=== PATIENT | female | born 1965 | race Caucasian/White ===

== ENCOUNTER 2019-08-12 10:20 | Emergency (ER) | payer OTHER, SELFPAY ==
--- NOTE | ~2019-08-12 | XR_ITS ---
EXAMINATION: XR chest 2V DATE: 08/12/2019 11:10 INDICATION: Shortness of breath. 2 weeks of congestion. TECHNIQUE: PA and lateral views of the chest were obtained. COMPARISON: Chest radiograph dated 01/03/2017 FINDINGS: The lungs are clear with no focal airspace opacities, pulmonary edema, pleural effusion or pneumothor ax. The cardiomediastinal silhouette is normal. Mild thoracolumbar levocurvature with moderate spondy losis. IMPRESSION: 1. No acute cardiopulmonary disease. Reviewed, dictated and finalized at location A. HOE OPERATOR
--- NOTE | ~2019-08-12 | CT_ITS ---
EXAMINATION: CTA chest PE protocol EXAM DATE: 08/12/2019 12:44 INDICATION: Shortness of breath with history of pulmonary embolism. TECHNIQUE: Spiral CTA of the chest (pulmonary arteries) was performed with 100 cc Omnipaque 350 intr avenous contrast injection. Images were acquired during the pulmonary arterial phase. Coronal maxi mum intensity projection 3D-reconstructions were created by the technologist on dedicated workstation . Axial, coronal and sagittal reformatted images were reviewed. The dose-length product (DLP) for t his examination was 635.24 mGy-cm. The exposure was tailored according to patient size (auto mA exp osure control), and iterative reconstruction (ASIR) was used as additional dose reduction technique. There is no prior study for comparison. FINDINGS: Pulmonary arteries are well opacified and without intraluminal filling defects. No thora cic aortic dissection. There is mild emphysema and hyperinflation. Lungs are clear. There are no pl eural or pericardial effusions. Tracheobronchial tree is patent. There is no mediastinal, hilar o r axillary lymphadenopathy. There is no pneumothorax. Heart normal in size. No evidence of tatianna nary arterial calcification. Upper abdomen is unremarkable. There is thoracic spondylosis without osteoblastic or osteolytic lesions identified. IMPRESSION: 1. No pulmonary emboli or acute findings. 2. Mild emphysema and hyperinflation. Reviewed, dictated and finalized at location A. MACY GRADUATE INTERN
[2019-08-12 10:22] VITALS: BP 103/63; PULSE 74; RESP 16; TEMP 36.4; O2SAT 99
--- NOTE | 2019-08-12 10:22 | ECG_ITS ---
Measurements Intervals [place] Rate: 70 P: 36 [place]: 137 QRS: 20 QRSD: 102 T: 43 QT: 365 QTc: 394 Interpretive Statements SINUS RHYTHM INCOMPLETE RIGHT BUNDLE BRANCH BLOCK BORDERLINE ECG Electronically Signed On 08-12-2019 10:56:24 PIPE BENDER by Deven Russell D.O.
[2019-08-12 10:40] LABS: Basophils Absolute Auto 0.1 K/mm3 (0.0-0.1); Basophils Percent Auto 0.4 % (0.2-1.2); Eosinophils Absolute Auto 0.1 K/mm3 (0-0.3); Eosinophils Percent Auto 0.6 % (0-4.4); Hematocrit 42.9 % (37.0-47.0); Immature Granulocyte Absolute 0.07 K/mm3 (0.00-0.031); Immature Granulocyte Percent A 0.4 % (0-0.5); Lymphocytes Absolute Auto 7.25 K/mm3 (0.9-3.2); Lymphocytes Percent Auto 44.7 % (18.3-44.2); Mean Corpuscular HGB Conc 32.6 g/dl (32-36); Mean Corpuscular Hemoglobin 29.4 pg (26-34); Mean Corpuscular Volume 89.9 fl (80-100); Mean Platelet Volume 9.8 fl (7.4-10.4); Monocytes Absolute Auto 0.8 K/mm3 (0.1-0.6); Monocytes Percent Auto 5.1 % (2.6-8.5); Neutrophils Absolute Auto 7.9 K/mm3 (1.3-6.7); Neutrophils Percent Auto 48.8 % (45.5-73.1); Platelet Count Result 438 k/mm3 (150-375); Red Blood Count 4.77 M/mm3 (4.2-5.4); Red Cell Distribution Width 13.2 % (11.5-14.5); White Blood Count 16.2 K/mm3 (4.5-10.0)
[2019-08-12 10:51] LABS: Blood Urea Nitrogen 20 mg/dL (7-17); Calcium 10.6 mg/dL (8.4-10.2); Carbon Dioxide 32 mmol/L (22-30); Chloride 102 mmol/L (98-107); Estimated CRCL calculation 77 ml/min; Estimated Glomerular Filt Rate > 60; Glucose 73 mg/dL (65-105); Sodium 142 mmol/L (137-145)
[2019-08-12 11:37] VITALS: BP 136/79; PULSE 61; RESP 17; O2SAT 97
--- NOTE | 2019-08-12 11:50 | ED.SOB ---
HPI - SOB/Dyspnea General Chief Complaint: Shortness of Breath/Dyspnea Stated Complaint: sob/worried about P.E. Time Seen by Provider: 08/12/19 11:39 Source: patient and RN notes reviewed Mode of arrival: ambulatory Limitations: no limitations History of Present Illness HPI Narrative: Pt is a 53 y/o female who presents to the ED with c/o SOB which began 2 weeks ago. She was prompted to come to the ED by Dr. Estes. Pt reports she began to experience right rib cage pain yesterday when she began coughing. She also reports a PMHx of a PE, so she wanted to be evaluated due to similar symptoms when she has had a PE. She states she takes a baby ASA every night, but denies any other anticoagulation therapy. She denies a fever, dizziness, chest pain, or pain anywhere else in her body. MD elicited complaint: shortness of breath Pertinent past history: PE Onset (ago): week(s) (2 weeks ago) Context: other (past PE) Timing: constant Severity: mild Relieving factors: nothing Known history of: PE Associated symptoms: cough and other (right rib cage pain secondary to cough) Related Data Home Medications Medication Instructions Recorded Confirmed alprazolam 0.25 mg tablet 0.25 mg PO TID 05/30/19 aspirin 81 mg tablet,delayed 81 mg PO DAILY 05/30/19 release magnesium oxide 500 mg tablet 500 mg PO DAILY 05/30/19 benzonatate 100 mg PO TID PRN 08/12/19 cholecalciferol (vitamin D3) 1,500 unit PO DAILY 08/12/19 [Vitamin D3] doxycycline hyclate 100 mg PO Q12-24H 08/12/19 methylprednisolone 4 mg PO DAILY 08/12/19 Allergies Allergy/AdvReac Type Severity Reaction Status Date / Time amoxicillin Allergy Unknown Rash Verified 08/12/19 11:33 bupropion Allergy Unknown Hives Verified 08/12/19 11:33 clavulanic acid Allergy Rash Verified 08/12/19 11:32 [From Augmentin] Review of Systems Review of Systems: All systems reviewed & are unremarkable except as noted in HPI and below Constitutional: Constitutional: Denies fever(s) and Denies other (pain anywhere else in her body) Cardiovascular: Cardiovascular: Denies chest pain and Reports other (right rib cage pain secondary to cough) Respiratory: Respiratory: Reports cough and Reports dyspnea Neurologic: Denies dizziness PMFSH Past Medical History Medical History (Updated 08/12/19 @ 13:53 by Raymond Motta MD) Pulmonary embolism Surgical History Surgical History No pertinent past surgical history Family History Family History Grandparent Diabetes mellitus, Onset Age: 83 Father Family history of hypercholesterolemia, Onset Age: 81 Family history of cardiovascular disease Family history of arthritis, Onset Age: 81 Family history of renal failure Mother Family history of pernicious anemia Other Family history of chronic obstructive pulmonary disease Family history of congestive heart failure Social History Social History Smoking status: Heavy tobacco smoker Alcohol intake: current Gender identity (if verbalized by the patient): Female Exam Narrative: Exam Narrative: GENERAL: Well-appearing, Obese, and in no acute distress. HEAD: Normocephalic, atraumatic. EYES: PERRLA and EOMI. ENT: Nares clear. Mucous membranes moist. NECK: Supple. CHEST: Clear to auscultation. No respiratory distress. Mild wheeze bilaterally HEART: Regular rate and rhythm. No murmur heard. Normal peripheral pulses. ABDOMEN: Soft, non tender, non distended, normal active bowel sounds. EXTREMITIES: Normal range of motion. No edema. Has a ganglionic cyst on the right wrist SKIN: Warm, dry, no rash. NEURO: No focal deficits. Alert and oriented x3. PSYCH: Normal mood and affect. Course Course Emergency Course: Inform patient about her lab work, EKG, CT findings. At this time there is no evidence of PE. Advised he
[2019-08-12 14:30] VITALS: BP 153/90; PULSE 60; RESP 18; O2SAT 97
== END 2019-08-12 14:30 | disposition home or self-care (01) ==
PROVIDERS: Emergency Provider Family Medicine; PCP Family Medicine
DX: J44.9 Chronic obstructive pulmonary disease, unspecified (principal); R07.89 Other chest pain; Z86.711 Personal history of pulmonary embolism; Z79.82 Long term (current) use of aspirin; F17.200 Nicotine dependence, unspecified, uncomplicated; I45.10 Unspecified right bundle-branch block
CPT/HCPCS: 36415; 71046; 71275; 80048; 85025; 87804; 93005; 99284; Q9967

== ENCOUNTER 2019-08-29 09:18 | Outpatient (CLI) | payer OTHER, SELFPAY ==
--- NOTE | ~2019-08-29 | US_ITS ---
EXAMINATION: US abdomen complete EXAM DATE: 08/29/2019 10:49 INDICATION: Left quadrant pain, tenderness to palpation. TECHNIQUE: Multiple grayscale and Doppler images of the complete abdomen were obtained (by a technolo gist who performed the scan) and subsequently reviewed. There is no prior study for comparison. FINDINGS: The abdominal aorta is normal in caliber. Visualized portion IVC is patent. The pancreatic head a nd body are normal in appearance. The pancreatic tail is not visualized. The liver has normal echogenicity and contour. There are no focal liver lesions identified. There is no evidence of intrahepatic biliary duct dilation. Portal venous flow was seen in the hepatopedal , normal direction and has normal Doppler waveform. Common bile duct measures 4 mm, which is normal. The gallbladder wall is normal in thickness, with ex pected amount of distention. No sonographic evidence of pericholecystic fluid. There is no cholelit hiases. Technologist performing exam reports patient did not demonstrate sonographic Woodward's sign. Please note that this sign is less reliable in patients who have received pain medication. Right kidney: There is normal contour and echogenicity. It measures 12.2 x 5.6 x 5.2 centimeters. There are no focal renal lesions identified. There is no hydronephrosis. Left kidney: There is normal contour and echogenicity. It measures 11.4 x 5.8 x 5.1 centimeters. T here are no focal renal lesions identified. There is no hydronephrosis. The spleen measures 10 centimeters and is morphologically normal. IMPRESSION: 1. Unremarkable complete abdominal ultrasound exam. Reviewed, dictated and finalized at location A. OGRAPH MECHANIC
== END 2019-08-29 09:19 | disposition home or self-care (01) ==
PROVIDERS: PCP Family Medicine; Visit Provider Family Medicine
DX: R10.12 Left upper quadrant pain (principal)
CPT/HCPCS: 76700

== ENCOUNTER 2020-09-03 10:36 | Emergency (ER) | payer OTHER, SELFPAY ==
[2020-09-03 11:02] VITALS: BP 129/82; PULSE 80; RESP 18; TEMP 36.6; O2SAT 100
[2020-09-03 11:22] LABS: Add Urine Microscopic? YES; Appearance Urine Cloudy (Clear); Bacteria Urine 2+ /hpf; Bilirubin Urine Negative (Negative); Blood Urine 2+ (Negative); Color Urine Yellow (Yellow); Glucose Urine UA Negative (Negative); Ketones Urine Negative (Negative); Leukocyte Esterase Ur Negative LEU/UL (Negative); Mucus Urine Heavy /lpf; Nitrate Urine Negative (Negative); Protein Urine Negative (Negative); Specific Grav Ur 1.019 (1.001-1.035); Squamous Epithelial Cell Urine Moderate /hpf (Few); Urobilinogen Urine Negative mg/dL (<2.0); WBC Urine 0-3 /hpf
[2020-09-03 12:32] VITALS: BP 120/76; PULSE 78; RESP 16; TEMP 36.8; O2SAT 98
[2020-09-03 13:09] LABS: Basophils Percent Auto 0.2 % (0.2-1.2); Eosinophils Absolute Auto 0.2 K/mm3 (0-0.3); Eosinophils Percent Auto 1.9 % (0-4.4); Hematocrit 45.7 % (37.0-47.0); Hemoglobin 14.9 g/dL (12.0-15.0); Immature Granulocyte Absolute 0.02 K/mm3 (0.00-0.031); Immature Granulocyte Percent A 0.2 % (0-0.5); Lymphocytes Percent Auto 35.2 % (18.3-44.2); Mean Corpuscular HGB Conc 32.6 g/dl (32-36); Mean Corpuscular Hemoglobin 29.3 pg (26-34); Mean Corpuscular Volume 89.8 fl (80-100); Mean Platelet Volume 10.7 fl (7.4-10.4); Monocytes Absolute Auto 0.4 K/mm3 (0.1-0.6); Neutrophils Absolute Auto 5.3 K/mm3 (1.3-6.7); Neutrophils Percent Auto 58.5 % (45.5-73.1); Platelet Count Result 346 k/mm3 (150-375); Red Blood Count 5.09 M/mm3 (4.2-5.4); Red Cell Distribution Width 13.1 % (11.5-14.5); White Blood Count 9.1 K/mm3 (4.5-10.0)
[2020-09-03] MEDS: SODIUM CHLORIDE 0.9% IV 1,000 ML 999 ML IV CONT (13:22)
[2020-09-03] MEDS: FAMOTIDINE 20 MG/2 ML VIAL IV PUSH (13:22)
[2020-09-03 13:28] LABS: Alanine Aminotransferase 14 U/L (4-35); Albumin Level 4.3 g/dL (3.5-5.1); Alkaline Phosphatase 132 U/L (38-126); Anion Gap 9 mmol/L (8-16); Aspartate Amino Transferase 19 U/L (14-36); Bilirubin,Total 0.5 mg/dL (0.2-1.3); Blood Urea Nitrogen 17 mg/dL (7-17); Calcium 9.9 mg/dL (8.4-10.2); Carbon Dioxide 25 mmol/L (22-30); Chloride 107 mmol/L (98-107); Estimated CRCL calculation 94 ml/min; Estimated Glomerular Filt Rate > 60; Glucose 90 mg/dL (65-105); Lipase 18 U/L (23-300); Potassium 4.1 mmol/L (3.4-5.0); Sodium 141 mmol/L (137-145)
--- NOTE | 2020-09-03 13:30 | ED.GENADULT ---
HPI - General Adult General Chief complaint: Abdominal Pain <Perez Perez PA-C - Last Filed: 09/03/20 13:36> Stated complaint: Gallbladder Issues <SOFI Vernon Last Filed: 09/03/20 13:36> Time Seen by Provider: 09/03/20 12:26 <SOFI Vernon Last Filed: 09/03/20 13:36> Source: patient and family <SOFI Vernon Last Filed: 09/03/20 13:36> Mode of arrival: ambulatory <Perez Perez PA-C - Last Filed: 09/03/20 13:36> Limitations: no limitations <Perez Perez PA-C - Last Filed: 09/03/20 13:36> History of Present Illness HPI narrative: Patient is a 54-year-old female who presents to emergency department for evaluation of having had diarrhea over the last day patient notes she had eaten a roast and then experienced diarrhea with multiple episodes throughout the day and some dry retching but denies emesis patient's has had diarrhea for the last 4 days patient on arrival denies any pain notes that her diarrhea is resolving and is otherwise resting comfortably in the room in no distress <Perez Perez PA-C - Last Filed: 09/03/20 13:36> Related Data Home medications: Home Medications Medication Instructions Recorded Confirmed aspirin 81 mg tablet,delayed 81 mg PO DAILY 05/30/19 04/30/20 release magnesium oxide 500 mg tablet 500 mg PO DAILY 05/30/19 04/30/20 cholecalciferol (vitamin D3) 50 1,500 unit PO DAILY 08/22/19 04/30/20 mcg (2,000 unit) capsule ascorbate calcium (vitamin C) 500 500 mg PO DAILY 02/18/20 04/30/20 mg tablet krill oil 500 mg capsule mg PO 02/18/20 04/30/20 mecobalamin (vitamin B12) 5,000 mcg PO 02/18/20 04/30/20 mcg disintegrating tablet <SOFI Vernon Last Filed: 09/03/20 13:36> Allergies/adverse reactions: Allergies Allergy/AdvReac Type Severity Reaction Status Date / Time Iodine and Iodide Containing Allergy Intermediate Rash Verified 09/03/20 12:52 Produc amoxicillin Allergy Unknown Rash Verified 09/03/20 12:52 bupropion Allergy Unknown Hives Verified 09/03/20 12:52 clavulanic acid Allergy Rash Verified 09/03/20 12:52 [From Augmentin] <Perez Perez PA-C - Last Filed: 09/03/20 13:36> Review of Systems Review of Systems: All systems reviewed & are unremarkable except as noted in HPI and below <Perez Perez PA-C - Last Filed: 09/03/20 13:36> [facility] Past Medical History Medical History: Medical History Abdominal pain Chronic anxiety Chronic pain of both feet COPD (chronic obstructive pulmonary disease) Encounter for screening for other viral diseases Leukocytosis Migraine without aura and without status migrainosus, not intractable Overactive bladder Pulmonary embolism <Perez Perez PA-C - Last Filed: 09/03/20 13:36> Surgical History Surgical History: Surgical History No pertinent past surgical history <Perez Perez PA-C - Last Filed: 09/03/20 13:36> Family History Family History: Family History Grandparent Diabetes mellitus, Onset Age: 83 Father Family history of hypercholesterolemia, Onset Age: 81 Family history of cardiovascular disease Family history of arthritis, Onset Age: 81 Family history of renal failure Mother Family history of pernicious anemia Other Family history of chronic obstructive pulmonary disease Family history of congestive heart failure <Perez Perez PA-C - Last Filed: 09/03/20 13:36> Social History Social History: Social History Smoking packs per day: 1 Smoking cigarettes per day: 20.0 Years smoked: 44 Smoking pack-years: 44.00 Smoking status: Current every day smoker Tobacco type: cigarettes Alcohol intake: current Subs
[2020-09-03 14:12] VITALS: BP 147/81; PULSE 83; RESP 18; O2SAT 95
== END 2020-09-03 14:30 | disposition home or self-care (01) ==
PROVIDERS: Emergency Provider General Practice; PCP Family Medicine
DX: R10.9 Unspecified abdominal pain (principal); N32.81 Overactive bladder; J44.9 Chronic obstructive pulmonary disease, unspecified; F41.9 Anxiety disorder, unspecified; F17.210 Nicotine dependence, cigarettes, uncomplicated; Z86.711 Personal history of pulmonary embolism
CPT/HCPCS: 36415; 80053; 81001; 83690; 85025; 96361; 96374; 99284; J7030

== ENCOUNTER 2020-12-18 10:44 | Outpatient (CLI) | payer OTHER, SELFPAY ==
[2020-12-18 11:52] LABS: Thyroid Stimulating Hormone 0.538 uIU/mL (0.465-4.680)
[2020-12-18 13:46] LABS: Free T4 Free Thyroxine 1.23 ng/mL (0.78-2.19)
[2020-12-22 15:26] LABS: Triiodothyronine T3 Free 3.3 pg/mL (2.3-4.2)
== END 2020-12-18 10:45 | disposition home or self-care (01) ==
LOC: ANHLAB 10:45
PROVIDERS: PCP Family Medicine; Visit Provider Internal Medicine Endocrinology, Diabetes & Metabolism
DX: E05.90 Thyrotoxicosis, unspecified without thyrotoxic crisis or storm (principal); E04.9 Nontoxic goiter, unspecified
CPT/HCPCS: 36415; 84439; 84443; 84481

== ENCOUNTER 2021-01-11 08:44 | Outpatient (CLI) | payer OTHER, SELFPAY ==
--- NOTE | 2021-01-27 15:24 | WPDHOMESLEEP ---
Sleep Study - Home Unattended Date of Study: 01/11/21 Ordering Provider: Donal Estes MD Interpreting Provider: Yamini Yi MD Home Sleep Study Type: Apnea Link Air Height: 1.7 m Weight: 97.522 kg Body Mass Index: 33.6 Neck Circumference (inches): 16 [place]: 3 Reason for Sleep Study Constant loud snoring Sleep History Regina Perez is a 55 year old woman with constant loud snoring. She does not snore loudly enough so others complain. She does not awaken from sleep feeling short of breath. She rarely awakens at night with heartburn, belching or coughing. She rarely has trouble sleeping with a cold. She does not wake up gasping for breath at night or have breathing problems at night reported to her by others. She rarely sweats get excessively at night. She does not notice her heart she does not fall asleep during the day. She denies falling asleep involuntarily or while driving. She does not have loss of muscle tone was strong emotion. She frequently has daytime difficulties due to excessive sleepiness. She works as a model home sales greeter. she does not feel paralyzed on waking or falling asleep and does not have vivid dreamlike scenes upon awakening or falling asleep. She is not afraid to go sleep. She rarely has nightmares and rarely remembers her dreams. She frequently has racing thoughts. She rarely feels sad or depressed. She occasionally has anxiety, muscular tension and occasionally notices parts of her body jerking. She does not kick at night. She does not have crawling and aching feelings in her legs. She frequently has leg pain at night. She does not have morning jaw pain and does not grind her teeth during sleep. She constantly is bothered by pain during the day, frequently awakened by pain at night. She frequently wakes up feeling stiff in the morning with sore or achy muscles and pain in the neck and spine. She has fatigue, headaches, memory problems and concentration difficulties. She has not gained weight in the last year. Normal bedtime is 11:00 p.m. falling asleep within a 1/2 hour after taking melatonin, or 1 hour if she does not take melatonin. She wakes up 4 or 5 times during the night, mainly to turn over and reposition. She returns to sleep within 30 seconds or sometimes as long as 10 minutes. She wakes the morning at 7:30 a.m.. She is drowsy for 2 hours after waking. She stays in the bed for 9 minutes after pushing the snooze button once. She does not generally take naps. A short nap is not refreshing. She feels better in the evening compared other times of day. She always has daytime sleepiness. Habits: tobacco 1 pack per day. Caffeine 2 coffees, 0.5 gal of weak tea. no alcohol. She does use recreational drugs. [facility] Past Medical History Medical History (Updated 01/27/21 @ 15:41 by Yamini Yi MD) Abdominal pain BMI 33.0-33.9,adult Chronic anxiety Chronic pain of both feet COPD (chronic obstructive pulmonary disease) Encounter for screening for other viral diseases Hypersomnia Leukocytosis Migraine without aura and without status migrainosus, not intractable Overactive bladder Pulmonary embolism Surgical History Surgical History No pertinent past surgical history Family History Family History Grandparent Diabetes mellitus, Onset Age: 83 Father Family history of hypercholesterolemia, Onset Age: 81 Family history of cardiovascular disease Family history of arthritis, Onset Age: 81 Family history of renal failure Mother Family history of pernicious anemia Other Family history of chronic obstructive pulmonary disease Family history of congestive heart failure Social History Social History Smoking packs per day: 1 Smoking cigarettes per day: 20.0 Years smoked: 44 Smoking pack-yea
[2021-01-27 15:59] VITALS: BMI 33.6
== END 2021-01-12 13:08 | disposition home or self-care (01) ==
LOC: ANHCSM 08:45
PROVIDERS: PCP Family Medicine; Visit Provider Family Medicine
DX: G47.10 Hypersomnia, unspecified (principal); G47.33 Obstructive sleep apnea (adult) (pediatric)
CPT/HCPCS: 95806

== ENCOUNTER 2021-03-15 00:47 | Day surgery (SDC) | payer OTHER, SELFPAY ==
[2021-03-04 13:27] VITALS: BMI 32.8
[2021-03-15 06:31] VITALS: BP 120/71; PULSE 77; RESP 18; TEMP 36.1; O2SAT 99; BMI 33.0
[2021-03-15] MEDS: LACTATED RINGERS 1,000 ML 150 ML IV CONT (06:43)
--- NOTE | 2021-03-15 07:09 | WPDANESEPPF ---
Anes - Initial Pre Proc Eval Procedure: Operation Date: 03/15/21 07:30 Proposed Procedures p Screening Colonoscopy - Santhosh Jhaveri MD Date/Time: 03/15/21 07:09 Surgeon: Santhosh Jhaveri MD Pre Op Diagnosis: neoplasm screening Patient Data Age: 55 Gender: F Height: 1.7 m Weight: 95.7 kg Last Vital Signs Temp 97 F L 03/15/21 06:31 Pulse 77 03/15/21 06:31 Resp 18 03/15/21 06:31 BP 120/71 03/15/21 06:31 Pulse Ox 99 03/15/21 06:31 Allergies Allergy/AdvReac Type Severity Reaction Status Date / Time amoxicillin Allergy Unknown Rash Verified 03/15/21 06:29 bupropion Allergy Unknown Hives Verified 03/15/21 06:29 clavulanic acid Allergy Rash Verified 03/15/21 06:29 [From Augmentin] Home Medications Medication Instructions Recorded Confirmed Type aspirin 81 mg tablet,delayed 81 mg PO DAILY 05/30/19 03/04/21 History release magnesium oxide 500 mg tablet 500 mg PO DAILY 05/30/19 03/04/21 History cholecalciferol (vitamin D3) 50 1,500 unit PO DAILY 08/22/19 03/04/21 History mcg (2,000 unit) capsule ascorbate calcium (vitamin C) 500 500 mg PO DAILY 02/18/20 03/04/21 History mg tablet krill oil 500 mg capsule 500 mg PO DAILY 02/18/20 03/04/21 History mecobalamin (vitamin B12) 5,000 5,000 mcg PO DAILY 02/18/20 03/04/21 History mcg disintegrating tablet celecoxib 200 mg capsule 200 mg PO DAILY PRN #30 cap 04/13/20 03/04/21 Rx alprazolam 0.25 mg tablet 0.25 mg PO TID PRN #90 tablet 04/30/20 03/04/21 Rx tolterodine 4 mg capsule,extended 4 mg PO DAILY #30 cap 08/06/20 03/04/21 Rx release 24 hr cannabis BYMOUTH 11/02/20 11/02/20 History ginkgo biloba [Ginkoba] 40 mg PO TID 03/04/21 03/04/21 History policosanol 10 mg PO DAILY 03/04/21 03/04/21 History Patient hx anesthesia problems: none Family hx anesthesia problems: none PMFSH Past Medical History Medical History (Updated 01/27/21 @ 16:49 by Donal Estes MD) Abdominal pain BMI 33.0-33.9,adult Chronic anxiety Chronic pain of both feet COPD (chronic obstructive pulmonary disease) Encounter for screening for other viral diseases Hypersomnia Leukocytosis Migraine without aura and without status migrainosus, not intractable Overactive bladder Pulmonary embolism Surgical History Surgical History No pertinent past surgical history Family History Family History Grandparent Diabetes mellitus, Onset Age: 83 Father Family history of hypercholesterolemia, Onset Age: 81 Family history of cardiovascular disease Family history of arthritis, Onset Age: 81 Family history of renal failure Mother Family history of pernicious anemia Other Family history of chronic obstructive pulmonary disease Family history of congestive heart failure Social History Social History Smoking packs per day: 1 Smoking cigarettes per day: 20.0 Years smoked: 45 Smoking pack-years: 45.00 Smoking status: Current every day smoker Tobacco type: cigarettes Alcohol intake: never Alcohol use details: rarely Substance use: never Substance use type: marijuana Living arrangements: with family Gender identity (if verbalized by the patient): Female Spiritual care concerns: No Anes - Eval Final PreProcedure Day of Procedure 03/15/21 07:09 Patient weight: obese Heart: regular rate and rhythm Lungs: clear to auscultation Airway: Mallampati scale class II Neurological: alert and oriented Last oral intake: >/= 8 hours ASA classification: III Emergent: no Anesthetic plan: proceed Anesthesia type and monitoring: general GIVS and standard monitoring Informed Consent: The patient's anesthetic plan and its attendant risks and benefits were discussed with the patient/family/POA. Questions were solicited and answers provided to the satisfaction of
--- NOTE | 2021-03-15 07:32 | WPDGICN ---
Assessment and Plan Assessment and plan (1) Colon cancer screening: Code(s): Z12.11 - Encounter for screening for malignant neoplasm of colon Status: Acute Assessment and Plan: Patient presents for screening colonoscopy. Further recommendations will be given after endoscopy. She appears to be at average risk for colon polyps. GI Consult Note Consult date/time: 03/15/21 07:32 HPI: Regina Perez is a 55 year old female Presents for screening colonoscopy. Patient reports that her current weight appetite bowel movements normal. She denies any blood in her stools. She denies abdominal pain. She has had no bleeding. Family history is noncontributory. Review of Systems Review of Systems: All systems reviewed & are unremarkable except as noted in HPI and below PMFSH Past Medical History Medical History (Updated 01/27/21 @ 16:49 by Donal Estes MD) Abdominal pain BMI 33.0-33.9,adult Chronic anxiety Chronic pain of both feet COPD (chronic obstructive pulmonary disease) Encounter for screening for other viral diseases Hypersomnia Leukocytosis Migraine without aura and without status migrainosus, not intractable Overactive bladder Pulmonary embolism Surgical History Surgical History No pertinent past surgical history Family History Family History Grandparent Diabetes mellitus, Onset Age: 83 Father Family history of hypercholesterolemia, Onset Age: 81 Family history of cardiovascular disease Family history of arthritis, Onset Age: 81 Family history of renal failure Mother Family history of pernicious anemia Other Family history of chronic obstructive pulmonary disease Family history of congestive heart failure Social History Social History Smoking packs per day: 1 Smoking cigarettes per day: 20.0 Years smoked: 45 Smoking pack-years: 45.00 Smoking status: Current every day smoker Tobacco type: cigarettes Alcohol intake: never Alcohol use details: rarely Substance use: never Substance use type: marijuana Living arrangements: with family Gender identity (if verbalized by the patient): Female Spiritual care concerns: No Meds Home Medications and Allergies Home Medications Medication Instructions Recorded Confirmed Type aspirin 81 mg tablet,delayed 81 mg PO DAILY 05/30/19 03/04/21 History release magnesium oxide 500 mg tablet 500 mg PO DAILY 05/30/19 03/04/21 History cholecalciferol (vitamin D3) 50 1,500 unit PO DAILY 08/22/19 03/04/21 History mcg (2,000 unit) capsule ascorbate calcium (vitamin C) 500 500 mg PO DAILY 02/18/20 03/04/21 History mg tablet krill oil 500 mg capsule 500 mg PO DAILY 02/18/20 03/04/21 History mecobalamin (vitamin B12) 5,000 5,000 mcg PO DAILY 02/18/20 03/04/21 History mcg disintegrating tablet celecoxib 200 mg capsule 200 mg PO DAILY PRN #30 cap 04/13/20 03/04/21 Rx alprazolam 0.25 mg tablet 0.25 mg PO TID PRN #90 tablet 04/30/20 03/04/21 Rx tolterodine 4 mg capsule,extended 4 mg PO DAILY #30 cap 08/06/20 03/04/21 Rx release 24 hr cannabis BYMOUTH 11/02/20 11/02/20 History ginkgo biloba [Ginkoba] 40 mg PO TID 03/04/21 03/04/21 History policosanol 10 mg PO DAILY 03/04/21 03/04/21 History Allergies Allergy/AdvReac Type Severity Reaction Status Date / Time amoxicillin Allergy Unknown Rash Verified 03/15/21 06:29 bupropion Allergy Unknown Hives Verified 03/15/21 06:29 clavulanic acid Allergy Rash Verified 03/15/21 06:29 [From Augmentin] Vital Signs Vital Signs - 24 hr 03/15/21 06:31 Temperature 97 F L Pulse Rate 77 Respiratory Rate 18 Blood Pressure 120/71 Pulse Oximetry 99 Exam Narrative: Physical exam reveals patient be alert. Vital signs are stable. HEENT exam is unremarkable. Patient is ani
[2021-03-15 07:51] VITALS: BP 101/58; PULSE 65; RESP 22; O2SAT 99
[2021-03-15 08:01] VITALS: BP 120/79; PULSE 60; RESP 20; O2SAT 99
[2021-03-15 08:11] VITALS: BP 123/79; PULSE 58; RESP 18; O2SAT 99
== END 2021-03-15 08:22 | disposition home or self-care (01) ==
PROVIDERS: PCP Family Medicine; Visit Provider Internal Medicine Gastroenterology
PROC: 0DJD8ZZ Inspection of Lower Intestinal Tract, Via Natural or Artificial Opening Endoscopic (ICD-10-PCS; CPT 45378; principal; 2021-03-15 07:30)
DX: Z12.11 Encounter for screening for malignant neoplasm of colon (principal); K62.1 Rectal polyp; J44.9 Chronic obstructive pulmonary disease, unspecified; F41.9 Anxiety disorder, unspecified; Z86.711 Personal history of pulmonary embolism; F17.210 Nicotine dependence, cigarettes, uncomplicated; F12.90 Cannabis use, unspecified, uncomplicated; E66.9 Obesity, unspecified; Z79.82 Long term (current) use of aspirin; Z68.33 Body mass index [BMI] 33.0-33.9, adult
CPT/HCPCS: 45385; 88305; J2704; J7120

== ENCOUNTER → 2021-04-06 17:15 | Outpatient (CLI) | payer OTHER, SELFPAY ==
--- NOTE | ~2021-04-06 | MM_ITS ---
EXAMINATION: MM screening aura BI w ulises HISTORY: Screening TECHNIQUE: Craniocaudal and mediolateral oblique 3-D tomosynthesis images were obtained and synthetic 2-D images were generated. CAD analysis was submitted and interpreted. COMPARISON: 12/08/2016 BREAST PARENCHYMAL COMPOSITION: The breasts are almost entirely fatty. FINDINGS: There is no evidence of suspicious mass, calcification, or architectural distortion to sugg est malignancy in either breast. There has been no suspicious interval change. IMPRESSION: 1. No mammographic evidence of malignancy. 2. Recommend routine screening mammography in one year. BI-RADS Category 1: Negative Reviewed, dictated and finalized at location A.
== END ==
PROVIDERS: PCP Family Medicine; Visit Provider Obstetrics & Gynecology
DX: Z12.31 Encounter for screening mammogram for malignant neoplasm of breast (principal)
CPT/HCPCS: 77063; 77067

== ENCOUNTER → 2021-08-31 15:29 | Outpatient (CLI) | payer OTHER, SELFPAY ==
--- NOTE | ~2021-08-31 | XR_ITS ---
EXAMINATION: XR hip LT min 3V w AP pelvis EXAM DATE: 08/31/2021 15:45 INDICATION: M70.62 - Trochanteric bursitis, left hip pain;no injury. TECHNIQUE: Left hip frontal, crosstable lateral and 'frog-leg' projections for interpretation. Fronta l projection pelvis. Comparison is made to prior examination from 01/10/2019. FINDINGS: Smooth left hip femoral head contour, no radiographic evidence of avascular necrosis. Ther e is mild to moderate symmetric bilateral hip primary osteoarthritis. Portion of lumbar spine imaged demonstrates moderate dextroscoliosis. There are no acute pelvis, left hip fractures or dislocations identified. There is no subcutaneous gas. The soft tissue is unremarkable. There are no radiopaq ue foreign bodies. IMPRESSION: 1. Mild to moderate symmetric bilateral hip osteoarthritis. 2. Moderate lumbar dextroscoliosis. Reviewed, dictated and finalized at location A. [employer] MA[employer]GER
== END ==
PROVIDERS: PCP Family Medicine; Visit Provider Family Medicine
DX: M70.62 Trochanteric bursitis, left hip (principal); M16.0 Bilateral primary osteoarthritis of hip; M41.86 Other forms of scoliosis, lumbar region
CPT/HCPCS: 73502

== ENCOUNTER 2021-11-10 10:43 | Outpatient (CLI) | payer OTHER, SELFPAY ==
--- NOTE | 2021-11-11 09:58 | WPDPFTINT ---
PFT Procedure Performed PFT Procedure Performed Spirometry with Pre/Post Bronchodilator Plethysmography (Lung Vol) Diffusing Cap (DLCO) Flow Vol Loop PFT Interpretation Lung volumes were measured with the body plethysmography method. Lung volumes are unremarkable. Spirometry showed normal expiratory flow rates and a normal FEV1 to FVC ratio of 77%. Following administration of a bronchodilator there was no significant increase in expiratory flow rates. Lung diffusion capacity is borderline normal at 72% predicted. The flow volume loop is unremarkable. Impression: Spirometry, lung volumes, and lung diffusion capacity all within the normal range.
== END 2021-11-10 10:44 | disposition home or self-care (01) ==
LOC: ANHPFT 10:45
PROVIDERS: PCP Family Medicine; Visit Provider Family Medicine
DX: J44.9 Chronic obstructive pulmonary disease, unspecified (principal)
CPT/HCPCS: 94060; 94726; 94729

== ENCOUNTER 2021-12-21 09:30 | Outpatient (CLI) | payer OTHER, SELFPAY ==
[2021-12-21 13:05] LABS: Free T4 Free Thyroxine 1.04 ng/mL (0.78-2.19)
[2021-12-23 21:07] LABS: Triiodothyronine T3 Free 3.2 pg/mL (2.3-4.2)
== END 2021-12-21 09:31 | disposition home or self-care (01) ==
LOC: ANHWCLAB 09:32
PROVIDERS: PCP Family Medicine; Referring Provider Internal Medicine Endocrinology, Diabetes & Metabolism; Visit Provider Internal Medicine Endocrinology, Diabetes & Metabolism
DX: E04.9 Nontoxic goiter, unspecified (principal); E05.90 Thyrotoxicosis, unspecified without thyrotoxic crisis or storm
CPT/HCPCS: 36415; 84439; 84443; 84481

== ENCOUNTER 2022-02-17 17:21 | Outpatient (CLI) | payer OTHER, SELFPAY ==
--- NOTE | ~2022-02-17 | XR_ITS ---
EXAMINATION: XR chest 2V DATE: 02/17/2022 17:42 INDICATION: Chronic obstructive pulmonary disease. TECHNIQUE: PA and lateral views of the chest were obtained. COMPARISON: Chest radiograph and CT dated 08/12/2019 FINDINGS: The lungs remain clear with no focal airspace opacities, pulmonary edema, pleural effusion or pneumot horax. The cardiomediastinal silhouette is normal. Moderate thoracic spondylosis with mild lower thor acic levoscoliosis. IMPRESSION: 1. No acute cardiopulmonary disease. Reviewed, dictated and finalized at location A.
== END 2022-02-17 17:22 | disposition home or self-care (01) ==
LOC: ANHIMG 17:28
PROVIDERS: PCP Family Medicine; Visit Provider Family Medicine
DX: J44.9 Chronic obstructive pulmonary disease, unspecified (principal)
CPT/HCPCS: 71046

== ENCOUNTER 2022-11-01 08:11 | Outpatient (CLI) | payer OTHER, SELFPAY ==
--- NOTE | ~2022-11-01 | CT_ITS ---
CT Scan of the Chest without Contrast: Clinical Indication: Lung cancer screening, smoking history Technique: Contiguous sections were acquired throughout the chest without intravenous contrast. Dose reduction technique was used on this scan by utilizing automated exposure control and iterative recon struction technique. The dose-length product (DLP) was 135.27 mGy-cm. COMPARISON: 08/12/2019 Findings: There is no evidence of any significant mediastinal, hilar or axillary lymphadenopathy. Mild coronary artery calcium lesions are present. There is no evidence of pleural or pericardial effusion. Stable mild biapical scarring noted. No other pulmonary nodule seen. Images through the upper abdomen reveal no abnormalities. Impression: Lung RADS 2: Benign appearance. 12 month follow-up screening CT advised. Reviewed, dictated and finalized at location . Impression: Lung RADS 2: Benign appearance. 12 month follow-up screening CT advised.
== END 2022-11-01 08:12 | disposition home or self-care (01) ==
PROVIDERS: PCP Family Medicine; Visit Provider Nurse Practitioner Family
DX: Z12.2 Encounter for screening for malignant neoplasm of respiratory organs (principal); F17.209 Nicotine dependence, unspecified, with unspecified nicotine-induced disorders
CPT/HCPCS: 71271

== ENCOUNTER 2023-02-06 17:14 | Outpatient (CLI) | payer OTHER, SELFPAY ==
[2023-02-06 18:01] LABS: Basophils Absolute Auto 0.1 K/mm3 (0.0-0.1); Basophils Percent Auto 0.5 % (0.2-1.2); Eosinophils Absolute Auto 0.2 K/mm3 (0-0.3); Eosinophils Percent Auto 1.8 % (0-4.4); Hematocrit 39.2 % (37.0-47.0); Immature Granulocyte Absolute 0.03 K/mm3 (0.00-0.031); Immature Granulocyte Percent A 0.3 % (0-0.5); Lymphocytes Absolute Auto 4.53 K/mm3 (0.9-3.2); Lymphocytes Percent Auto 41.4 % (18.3-44.2); Mean Corpuscular HGB Conc 33.2 g/dl (32-36); Mean Corpuscular Hemoglobin 30.7 pg (26-34); Mean Corpuscular Volume 92.7 fl (80-100); Mean Platelet Volume 10.6 fl (7.4-10.4); Monocytes Absolute Auto 0.5 K/mm3 (0.1-0.6); Monocytes Percent Auto 4.3 % (2.6-8.5); Neutrophils Absolute Auto 5.7 K/mm3 (1.3-6.7); Neutrophils Percent Auto 51.7 % (45.5-73.1); Platelet Count Result 329 k/mm3 (150-375); Red Blood Count 4.23 M/mm3 (4.2-5.4)
[2023-02-06 18:08] LABS: Appearance Urine Turbid (Clear); Bacteria Urine 1+ /hpf; Bilirubin Urine Negative (Negative); Blood Urine 2+ (Negative); Color Urine Yellow (Yellow); Glucose Urine UA Negative (Negative); Ketones Urine Negative (Negative); Leukocyte Esterase Ur 1+ LEU/UL (NEGATIVE); Nitrate Urine Negative (Negative); Protein Urine Negative (Negative); Specific Grav Ur 1.016 (1.001-1.035); Squamous Epithelial Cell Urine Many /hpf (Few); Urobilinogen Urine 0.2 mg/dL (<2.0)
[2023-02-06 18:13] LABS: Alanine Aminotransferase 18 U/L (6-35); Albumin Level 4.4 g/dL (3.5-5.1); Alkaline Phosphatase 120 U/L (38-126); Anion Gap 7 mmol/L (8-16); Aspartate Amino Transferase 21 U/L (14-36); Bilirubin,Total 0.3 mg/dL (0.2-1.3); Blood Urea Nitrogen 18 mg/dL (7-17); Calcium 10.1 mg/dL (8.4-10.2); Carbon Dioxide 27 mmol/L (22-30); Chloride 105 mmol/L (98-107); Cholesterol 233 mg/dL (0-200); Estimated Glomerular Filt Rate > 60; Glucose 93 mg/dL (65-110); HDL Direct 43 mg/dL; Magnesium 2.4 mg/dL (1.6-2.3); Potassium 3.9 mmol/L (3.4-5.0); Sodium 139 mmol/L (137-145); Triglycerides 158 mg/dL (<150); Uric Acid 4.2 mg/dL (2.5-7.5)
[2023-02-06 18:17] LABS: Add Urine Microscopic? YES
[2023-02-06 18:23] LABS: LDL Cholesterol Direct 140 mg/dL
[2023-02-06 18:58] LABS: Rheumatoid Factor < 12.0 IU/ML (<12)
[2023-02-06 19:00] LABS: Erythrocyte Sedimentation Rate 16 mm/hr (0-20)
[2023-02-08 19:30] LABS: ANA Cascade Screen Negative (Negative)
== END 2023-02-06 17:15 | disposition home or self-care (01) ==
PROVIDERS: PCP Family Medicine; Visit Provider Family Medicine
DX: E78.2 Mixed hyperlipidemia (principal); G47.33 Obstructive sleep apnea (adult) (pediatric); M16.12 Unilateral primary osteoarthritis, left hip; K59.09 Other constipation; H04.123 Dry eye syndrome of bilateral lacrimal glands; R68.2 Dry mouth, unspecified; G57.93 Unspecified mononeuropathy of bilateral lower limbs; N32.81 Overactive bladder
CPT/HCPCS: 36415; 80053; 80061; 81001; 82607; 82746; 83735; 84550; 85025; 85652; 86038; 86430

== ENCOUNTER 2024-01-03 09:04 | Outpatient (CLI) | payer OTHER, SELFPAY ==
--- NOTE | 2024-01-18 12:42 | WPDHOMESLEEP ---
Sleep Study - Home Unattended Date of Study: 01/03/24 Ordering Provider: Misa Baca DO Interpreting Provider: Misa Baca DO Home Sleep Study Type: Watch PAT Height: 1.73 m Weight: 90.718 kg Body Mass Index: 30.4 Neck Circumference (inches): 14.5 [place]send: 0 Reason for Sleep Study Previously diagnosed with mild DAYANARA on 01/11/2021 but never started PAP Therapy Sleep History Sleep questionnaire was unavailable. Please see HPI from most recent Sleep Medicine note. [facility] Past Medical History Medical History Abdominal pain Bilateral chronic knee pain Test for inflammatory arthritis normal on 02/06/2027 with uric acid 4.2, rheumatoid factor less than 12, RERE negative. BMI 31.0-31.9,adult BMI 33.0-33.9,adult Breast cancer screening Chronic anxiety Chronic pain of both feet COPD (chronic obstructive pulmonary disease) Pulmonary function study on 11/10/2021 was completely normal with no obstructive defects. No COPD. COVID-19 (06/25/21) fully vaccinated and COVID 19 with positive home test around 06/27/2021 Dry mouth and eyes RERE negative 02/06/2023. Encounter for screening for other viral diseases Encounter for wellness examination in adult Hypersomnia Leukocytosis WBC 11.0 on 02/06/2023. Migraine without aura and without status migrainosus, not intractable Muscle spasm Magnesium normal at 2.4 on 02/06/2023. Neuropathy of both feet Vitamin B12 normal at 429 with folic acid 11.0 on 02/06/2023. Obesity (BMI 30.0-34.9) Overactive bladder Plantar wart of left foot Pulmonary embolism Screening for lung cancer CT lung screening 11/01/2022 was normal. Surgical History Surgical History No pertinent past surgical history Family History Family History Grandparent Diabetes mellitus, Onset Age: 83 Father Family history of hypercholesterolemia, Onset Age: 81 Family history of cardiovascular disease Family history of arthritis, Onset Age: 81 Family history of renal failure Mother Family history of pernicious anemia Other Family history of chronic obstructive pulmonary disease Family history of congestive heart failure Social History Social History Smoking packs per day: 1 Smoking cigarettes per day: 20.0 Years smoked: 45 Smoking pack-years: 45.00 Smoking status: Current every day smoker Tobacco type: cigarettes Alcohol intake: never Alcohol use details: rarely Substance use: never Substance use type: marijuana Current Housing: Decline to Answer Concerned About Future Housing: Decline to Answer Difficulty Paying Gas/Electric Bills: Decline to Answer Difficulty Paying for Meds: Decline to Answer Currently Unemployed: Decline to Answer Education: Decline to Answer Difficulty w/ Childcare or Family Care: Decline to Answer Living arrangements: with family Gender identity (if verbalized by the patient): Female Spiritual care concerns: No Medications Home Medications Medication Instructions Recorded Confirmed Type aspirin 81 mg tablet,delayed 81 mg PO DAILY 05/30/19 04/20/23 History release (Adult Low Dose Aspirin) cholecalciferol (vitamin D3) 50 1,500 unit PO DAILY 08/22/19 04/20/23 History mcg (2,000 unit) capsule (Vitamin D3) ascorbate calcium (vitamin C) 500 500 mg PO DAILY 02/18/20 04/20/23 History mg tablet krill oil 500 mg capsule 500 mg PO DAILY 02/18/20 04/20/23 History acetaminophen 650 mg 650 mg PO Q12H 09/09/21 04/20/23 History tablet,extended release (Tylenol Arthritis Pain) magnesium oxide 500 mg PO BID 10/26/21 04/20/23 History alprazolam 0.25 mg tablet (Xanax) 0.25 mg PO TID PRN anxiety #90 tabs 08/09/22 04/20/23 Rx multivitamin 1 tablet PO DAILY 12/06/22 04/20/23 Histor
[2024-01-18 13:01] VITALS: BMI 30.4
== END 2024-01-04 12:14 | disposition home or self-care (01) ==
LOC: ANHCSM 09:25
PROVIDERS: PCP Family Medicine; Visit Provider Family Medicine
DX: G47.33 Obstructive sleep apnea (adult) (pediatric) (principal)
CPT/HCPCS: 95800

== ENCOUNTER 2024-06-22 09:21 | Outpatient (CLI) | payer OTHER, SELFPAY ==
[2024-06-22 09:53] LABS: Basophils Absolute Auto 0.1 K/mm3 (0.0-0.1); Basophils Percent Auto 0.6 % (0.2-1.2); Eosinophils Absolute Auto 0.3 K/mm3 (0-0.3); Eosinophils Percent Auto 3.6 % (0-4.4); Hematocrit 42.7 % (37.0-47.0); Immature Granulocyte Absolute 0.02 K/mm3 (0.00-0.031); Immature Granulocyte Percent A 0.2 % (0-0.5); Lymphocytes Absolute Auto 3.67 K/mm3 (0.9-3.2); Lymphocytes Percent Auto 44.5 % (18.3-44.2); Mean Corpuscular HGB Conc 32.8 g/dl (32-36); Mean Corpuscular Hemoglobin 30.5 pg (26-34); Monocytes Absolute Auto 0.4 K/mm3 (0.1-0.6); Monocytes Percent Auto 5.2 % (2.6-8.5); Neutrophils Absolute Auto 3.8 K/mm3 (1.3-6.7); Neutrophils Percent Auto 45.9 % (45.5-73.1); Platelet Count Result 338 k/mm3 (150-375); Red Blood Count 4.59 M/mm3 (4.2-5.4); Red Cell Distribution Width 13.3 % (11.5-14.5); White Blood Count 8.3 K/mm3 (4.5-10.0)
[2024-06-22 10:01] LABS: Alanine Aminotransferase 20 U/L (6-35); Albumin Level 4.4 g/dL (3.5-5.1); Alkaline Phosphatase 118 U/L (38-126); Anion Gap 0 mmol/L (4-12); Aspartate Amino Transferase 22 U/L (14-36); Bilirubin,Total 0.4 mg/dL (0.2-1.3); Blood Urea Nitrogen 25 mg/dL (7-17); Calcium 10.3 mg/dL (8.4-10.2); Carbon Dioxide 28 mmol/L (22-30); Chloride 111 mmol/L (98-107); Cholesterol 263 mg/dL (0-200); Estimated Glomerular Filt Rate > 60; Glucose 92 mg/dL (65-110); HDL Direct 56 mg/dL; Potassium 4.8 mmol/L (3.4-5.0); Sodium 139 mmol/L (137-145); Triglycerides 116 mg/dL (<150)
[2024-06-22 10:08] LABS: Add Urine Microscopic? YES; Appearance Urine Turbid (Clear); Bacteria Urine 1+ /hpf; Bilirubin Urine Negative (Negative); Blood Urine 2+ (Negative); Color Urine Yellow (Yellow); Glucose Urine UA Negative (Negative); Ketones Urine Negative (Negative); Leukocyte Esterase Ur 1+ LEU/UL (Negative); Nitrate Urine Negative (Negative); Non Pathogenic Casts 0-2; Protein Urine Negative (Negative); Specific Grav Ur 1.015 (1.001-1.035); Squamous Epithelial Cell Urine Many /hpf (Few); Urobilinogen Urine 0.2 mg/dL (<2.0)
[2024-06-22 10:12] LABS: LDL Cholesterol Direct 150 mg/dL
[2024-06-27 10:08] LABS: Vitamin D 1,25 (OH)2 Total 54 pg/mL (18-72); Vitamin D2 1,25 (OH)2 <8 pg/mL; Vitamin D3 1,25 (OH)2 54 pg/mL
== END 2024-06-22 09:22 | disposition home or self-care (01) ==
LOC: ANHLAB 09:22
PROVIDERS: PCP Family Medicine; Visit Provider Family Medicine
DX: E05.90 Thyrotoxicosis, unspecified without thyrotoxic crisis or storm (principal); E78.2 Mixed hyperlipidemia; N32.81 Overactive bladder; E55.9 Vitamin D deficiency, unspecified; G47.33 Obstructive sleep apnea (adult) (pediatric)
CPT/HCPCS: 36415; 80053; 80061; 81001; 82652; 84439; 84443; 85025

== ENCOUNTER 2025-03-21 07:19 | Outpatient (CLI) | payer OTHER, SELFPAY ==
--- OUTSIDE RECORDS SUMMARY | 2021-02-18 04:11 | XMS_ITS | Continuity of Care Document ---
Author Organization [facility] Address [address] [address] [place] [address] Phone Care Team Providers Care Buttermaker Name Role Phone Schuyler Costa MD Unavailable Unavailable Allergies, Adverse Reactions, Alerts Substance Reaction Status Criticality ampicillin Active No Information Medications Medication Instructions Dosage Effective Dates (start - stop) Status Comments Vigamox 0.5 % eye drops instill 1 drop by ophthalmic route 4 times every day into operative eye for 2 weeks, then stop - Active ok to substitute Polytrim 5ml with same directions prednisolone acetate 1 % eye drops,suspension instill 1 drop by ophthalmic route 4 times every day into operative eye for 2 weeks, then 2 times per day for 2 weeks, then stop - Active ketorolac 0.5 % eye drops instill 1 drop in operative eye 4 times every day for 2 weeks, then 2 times per day for 2 weeks, then stop - Active Celebrex 50 mg capsule take 2 capsule by oral route 2 times every day 100 MG - Active ginkgo biloba 40 mg capsule take one tablet daily - Active Policosanol-Garlic- Niacin 5 mg-250 mg-400 mg capsule take one tablet daily - Active Vitamin D3 1,000 unit capsule take one tablet daily - Active magnesium 250 mg tablet take 1 tablet by oral route every day 1 tablet - Active Krill Oil ([place] 3 and 6) 1,000 mg-130 mg (40 mg-80 mg) capsule take one tablet daily - Active aspirin 81 mg chewable tablet chew 1 tablet by oral route every day 81 MG - Active Procedures Procedure Date Fundus Photography W/ Report No Charge GDX Retina No Charge IOL Master No Charge Orbscan No Charge Refraction Office/outpatient Visit, Est No Charge Refraction Fundus Photography W/ Report Eye Exam & Treatment Eye Exam & Treatment Eye Exam, New Patient Advance Directives Directive Yes / No Effective Date File Name No Information Encounters Encounter Description Practice Location Reason(s) For Visit Diagnoses Date Provider Providers Copied on Encounter [facility], [address], [place], [place], [id number], [place] [phone] SEC [place] JENNIFER Professional No Information 1 Igor Payan. [address], [address], [place], [place], [address], [place]. tel:[phone] Office/outpa tient Visit, Est [facility], [address], [place], [place], [id number], [place] [phone] SEC [place] JENNIFER Professional Cataract Eval (chief complaint) Age-related nuclear cataract, bilateralPost erior vitreous detachment of right eye 1 Igor Payan. [address], [address], [place], [place], [address], [place]. tel:[phone] Referring Provider: Puja Crockett MD, [address], [place], [address]. tel:[phone] [facility], [address], [place], [place], [address], [place] tel:[phone] SEC [place] JENNIFER Professional Complete Exam (chief complaint) Age-related nuclear cataract, bilateralPost erior vitreous detachment of right eyeGraves disease 1 Igor Payan. [address], [place], [place], [address], [place]. tel:[phone] Referring Provider: Puja Crockett MD, [address], [place], [address]. tel:[phone] [facility], [address], [place], [place], [id number], tel:[phone] SEC [place] Professional Complete Exam (chief complaint) Age-related nuclear cataract, bilateralGrav es disease 0 3-201 9 Igor Payan. [address], [place], [place], [address], [place]. tel:[phone] Referring Provider: Puja Crockett MD, [address], [place], [address]. tel:[phone] [facility], [address] [address], [place], [place], [id number], [place] tel:[phone] SEC [place] Professional Complete Exam (chief complaint) Graves diseaseAge-re lated nuclear cataract, bilateralPost erior vitreous detachment of right eyeDry eye syndrome of both eyes Fe0 2201 8 Igor Payan. [address], [place], [place], [address], [place]. tel:[phone] Referring Provider: Puja Crockett MD, [address], [place], [address]. tel:[phone] Family History Family Member Type Diagnosis Age At Onset No Information Payers Payer name Insurance type Covered constitution party ID Authorsaundraa chrisstacey(s) [employer] SOI CI [id number] Social History Type Description Quantity Date Captured Comments Sex Female Smoking Status No Information Chief Complaint And Reason For Visit No Information Reason For Referral Reason For Referral No Information Plan Of Treatment Date Type Action Status Goal Tobacco cessation counseling completed Goal Tobacco cessation counseling completed Patient Education Cataract Surgery: What to Expect at H~ completed Patient Education Cataracts: Care Instruc tions completed Patient Education Cataracts: Care Instruc tions completed History Of Present Illness Encounter Date Complaint History Of Prese nt Illness Cataract Eval The 55 year old female presents for evaluation of Cataract Eval in the right eye and left eye. Hx Cataract OU, Graves Disease. Pt reports trouble driving at night, she sees glare from oncoming headlights at night. Pt reports trouble seeing TV and reading small print at near such as newspapers, books, and medicine bottles x 2 years OD > OS. Complete Exam The 55 year old female presents for evaluation of Complete Exam in the right eye and left eye. Hx Cataract OU, Grave's Disease. Pt reports blur at near OD > OS. Pt uses OTC readers for near. Pt does not take gtts. Pt reports trouble driving at night, she sees glare from oncoming headlights at night. Pt reports trouble seeing small print at near such as newspapers, books, and medicine bottles OD > OS x many months. Pt does not want to have cataract surgery at this time. Complete Exam The 53 year old female presents for evaluation of Complete Exam in the right eye and left eye. Hx of CAT OU, PVD OD, and BRITTANY OU. Pt denies any changes or problems with OU. Pt reports she uses OTC gls, she is happy with them, and doesn't want to get gls. Pt reports she doesn't use any gtts, and no pain or irritation today, OU. Complete Exam The 51 year old female presents for Complete Exam in the right eye and left eye. Patient has a recent DX of Graves disease x 1 month. Patient states she feels pressure behind her eyes x 1 month. Patient wears OTC reading glasses. Functional Status Date Functional Assessmen t No Information Instructions Date Instruction Additional Infor juanpablo Impression/Plan Impression/Plan Impression/Plan Follow up - Return i n 6 months for complete exam, sooner if problems Impression/Plan - Gr aves Disease- Recently diagnosed- Currently on methimazole- No current evidence of lid retraction, exophthalmos, EOM deficits, or associated optic neuropathy- Oberve- Return with any new symptoms as above - Discussed with patient the benefit of steriods prior to any future radioablation to decrease risk of YOCASTA- Return in 6 months for complete exam, sooner if problemsMild Cataracts OU- Not visually significant- Cataracts, signs, symptoms, and treatment discussed- Treatment not indicated at this time- Continue with current OTC reading glasses- MonitorDry Eye OU- SPK OU- Discussed finding with patient- Patient is symptomatic- Begin ATs BID OU - Monitor Age-related nuclear cataract, bilateral - Surgery not indicated at this time Related to Age-related nuclear cataract, bilateral Assessments Type Assessment Date No Information Patient Care Teams Name Effective Dates (start - stop) Status Members No Information
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
[2025-03-21 07:46] LABS: Hematocrit 42.3 % (37.0-47.0); Hemoglobin 13.8 g/dL (12.0-15.0); Immature Granulocyte Percent A 0.1 % (0-0.5); Lymphocytes Absolute Auto 2.87 K/mm3 (0.9-3.2); Mean Corpuscular HGB Conc 32.6 g/dl (32-36); Mean Corpuscular Hemoglobin 29.4 pg (26-34); Mean Corpuscular Volume 90.2 fl (80-100); Nucleated Red Blood Cells Absolute Auto 0.000 K/mm3 (0.0-0.012); Nucleated Red Blood Cells Perc 0.0 % (0.0-0.2); Platelet Count Result 326 k/mm3 (150-375); Red Blood Count 4.69 M/mm3 (4.2-5.4); White Blood Count 7.2 K/mm3 (4.5-10.0)
[2025-03-21 07:57] LABS: Hemoglobin A1C 5.6 % (<5.7)
[2025-03-21 07:58] LABS: Alanine Aminotransferase 17 U/L (6-35); Albumin Level 4.2 g/dL (3.5-5.1); Alkaline Phosphatase 150 U/L (38-126); Anion Gap 6 mmol/L (4-12); Aspartate Amino Transferase 22 U/L (14-36); Bilirubin,Total 0.5 mg/dL (0.2-1.3); Blood Urea Nitrogen 26 mg/dL (7-17); Calcium 10.0 mg/dL (8.4-10.2); Carbon Dioxide 25 mmol/L (22-30); Chloride 107 mmol/L (98-107); Cholesterol 276 mg/dL (0-200); Estimated Glomerular Filt Rate > 60; Glucose 98 mg/dL (65-110); HDL Direct 44 mg/dL; Magnesium 2.4 mg/dL (1.6-2.3); Potassium 4.3 mmol/L (3.4-5.0); Sodium 138 mmol/L (137-145); Total Protein 7.3 g/dL (6.3-8.2); Triglycerides 132 mg/dL (<150)
[2025-03-21 08:13] LABS: Parathyroid Intact 82.2 pg/mL (14.5-75.2)
[2025-03-21 08:19] LABS: Free T3 3.25 pg/mL (2.45-5.93); Free T4 Free Thyroxine 0.92 ng/dL (0.78-2.19)
[2025-03-21 08:34] LABS: Thyroid Stimulating Hormone 3.560 uIU/mL (0.465-4.680)
== END 2025-03-21 07:20 | disposition home or self-care (01) ==
LOC: ANHLAB 07:20
PROVIDERS: PCP Family Medicine; Visit Provider Nurse Practitioner Family
DX: Z12.2 Encounter for screening for malignant neoplasm of respiratory organs (principal); F17.209 Nicotine dependence, unspecified, with unspecified nicotine-induced disorders; F41.9 Anxiety disorder, unspecified; F43.10 Post-traumatic stress disorder, unspecified; E78.2 Mixed hyperlipidemia; E05.90 Thyrotoxicosis, unspecified without thyrotoxic crisis or storm; E83.52 Hypercalcemia
CPT/HCPCS: 36415; 80053; 80061; 83036; 83735; 83970; 84439; 84443; 84481; 85025